=== PATIENT | male | born 1990 | race American Indian/Alaskan Native ===

== ENCOUNTER 2017-12-28 08:04 | Emergency (ER) | payer BC ==
[2017-12-28 08:08] VITALS: BMI 24.4
[2017-12-28] MEDS ORDERED: Alum-Mag Hydrox-Simethicone Susp (30 mL) PO STA (08:08)
[2017-12-28] MEDS ORDERED: Sodium Chloride 0.9% 1,000 ML IV STA (08:08)
[2017-12-28 08:21] LABS: BASO # 0.02 K/mm3 (0.0-2.0); BASO % 0.3 % (0.0-3.0); EOS # 0.2 (0.0-0.7); EOS % 2.7 % (1.5-5.0); GRAN # 3.57 (1.4-6.5); GRAN % 52.6 % (50.0-68.0); HEMOGLOBIN 14.4 g/dL (14.0-18.0); LYMPH # 2.3 (1.2-3.4); LYMPH % 34.1 % (22.0-35.0); MEAN CELL VOLUME 91.3 fl (80.0-105.0); MEAN CORPUSCULAR HEMOGLOBIN 31.4 pg (25.0-35.0); MEAN CORPUSCULAR HGB CONC 34.4 g/dl (31.0-37.0); MEAN PLATELET VOLUME 10.2 fl (7.0-11.0); MONO # 0.7 (0.1-0.6); MONO % 10.3 % (1.0-6.0); RBC 4.58 10^6/uL (3.5-6.1); RED CELL DISTRIBUTION WIDTH 12.4 % (11.5-14.5); WHITE BLOOD COUNT 6.8 10^3/ul (4.5-11.0)
[2017-12-28 08:25] LABS: ALB/GLOB RATIO 1.2 (1.1-1.8); ALBUMIN 4.5 g/dL (3.0-4.8); ALT/SGPT 46 U/L (7-56); AST/SGOT 44 U/L (17-59); BLOOD UREA NITROGEN 11 mg/dL (7-21); CALCIUM 9.7 mg/dL (8.4-10.5); GFR NON-AFRICAN AMERICAN > 60; LIPASE 63 U/L (23-300)
[2017-12-28 08:31] VITALS: O2SAT 98
[2017-12-28 08:44] LABS: PH,URINE 6.5 (4.7-8.0); URINE BILIRUBIN NEGATIVE (NEGATIVE); URINE BLOOD NEGATIVE (NEGATIVE); URINE GLUCOSE (UA) NEGATIVE (NEGATIVE); URINE LEUKOCYTE ESTERASE TRACE Leu/uL (NEGATIVE); URINE PROTEIN 30 mg/dL (<30 mg/dL); URINE UROBILINOGEN 0.2 E.U./dL (<1 E.U./dL)
[2017-12-28 08:49] LABS: URINE APPEARANCE CLEAR (CLEAR); URINE COLOR YELLOW (YELLOW)
[2017-12-28 08:54] LABS: URINE BACTERIA MANY (NEG); URINE EPITHELIAL CELLS 0 - 2 /hpf (0-5)
[2017-12-28 08:55] LABS: URINE AMORPHOUS SEDIMENT FEW
--- NOTE | 2017-12-28 09:14 | ED PDOC ---
Arrival/HPI - General Chief Complaint: GI Problem Time Seen by Provider: 12/28/17 08:07 Historian: Patient - History of Present Illness Narrative History of Present Illness (Text): 12/28/17 07:45 27 year old male, with no significant past medical history, who presents to the Emergency department complaining of excessive belching and constipation for the past 6 months, noting bowel movements about 1 day per week. Patient notes nausea and vomiting sometimes after eating. Patient states he went to [facility] last year, where tests completed were negative and he was not directed to follow up with any other doctors. Patient states he has not taken any medication, but instead controls his diet to help with symptoms, noting he does not notice any significant changes with any specific foods. 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 Patient is a non-smoker, denies use of drugs and denies EtOH consumption. Patient denies diarrhea, loss of weight, or any other complaints. Time/Duration: Other (ongoing for past 6 months) Symptom Onset: Sudden Symptom Course: Unchanged Activities at Onset: Light Past Medical History - Provider Review Nursing Documentation Reviewed: Yes - Cardiac Hx Cardiac Disorders: No - Pulmonary Hx Respiratory Disorders: No - Neurological Hx Neurological Disorder: No - HEENT Hx HEENT Disorder: No - Renal Hx Renal Disorder: No - Endocrine/Metabolic Hx Endocrine Disorders: No - Hematological/Oncological Hx Blood Disorders: No - Integumentary Hx Dermatological Disorder: No - Musculoskeletal/Rheumatological Hx Musculoskeletal Disorders: No - Gastrointestinal Hx Gastrointestinal Disorders: No - Genitourinary/Gynecological Hx Genitourinary Disorders: No - Psychiatric Hx Psychophysiologic Disorder: No Hx Substance Use: No Family/Social History - Physician Review Nursing Documentation Reviewed: Yes Family/Social History: No Known Family HX Smoking Status: Never Smoked Hx Alcohol Use: No Hx Substance Use: No Allergies/Home Meds Allergies/Adverse Reactions: Allergies No Known Allergies Allergy (Unverified 12/28/17 08:08) Review of Systems - Physician Review All systems were reviewed & negative as marked: Yes - Review of Systems Constitutional: Normal. absent: Weight Change (patient denies loss of weight) Eyes: Normal Respiratory: Normal Cardiovascular: Normal Gastrointestinal: Constipation (patient notes ongoing constipation for past 6 months), Nausea, Vomiting (patient notes vomiting sometimes after eating). 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 absent: Normal Physical Exam Vital Signs Reviewed: Yes Vital Signs Temp Pulse Resp BP Pulse Ox 12/28/17 08:27 98.5 F 61 18 105/67 98 12/28/17 08:05 97.5 F L 61 17 119/69 99 Temperature: Afebrile Blood Pressure: Normal Pulse: Regular Respiratory Rate: Normal Appearance: Positive for: Well-Appearing, Non-Toxic, Comfortable Pain Distress: None Mental Status: Positive for: Alert and Oriented X 3 - Systems Exam Head: Present: Atraumatic, Normocephalic Pupils: Present: PERRL Extroacular Muscles: Present: EOMI Conjunctiva: Present: Normal Mouth: Present: Moist Mucous Membranes Neck: Present: Normal Range of Motion Respiratory/Chest: Present: Clear to Auscultation, Good Air Exchange. No: Respiratory Distress, Accessory Muscle Use Cardiovascular: Present: Regular Rate and Rhythm, Normal S1, S2. No: Murmurs Abdomen: Present: Other (No abdominal fullness. Slight discomfort on palpitation of left abdomen. ). No: Tenderness, Distention, Peritoneal Signs Back: Present: Normal Inspection Upper Extremity: Present: Normal Inspection. No: Cyanosis, Edema Lower Extremity: Present: Normal Inspection. No: Edema Neurological: Present: GCS=15, CN II-XII Intact, Speech Normal Skin: Present: Warm, Dry, Normal Color. No: Rashes Psychiatric: Present: Alert, Oriented x 3, Normal Insight, Normal Concentration Medical Decision Making ED Course and Treatment: 12/28/17 07:45 Impression: 27 year old male presents to the Emergency department complaining of excessive belching and constipation for the past 6 months. Differential Diagnosis included but are not limited to: - Gastritis - PUD - Pancreatitis Plan: -- Labs -- CBC (with differential) -- X-Ray of chest -- Maalox Plus 30 ml -- Protonix Inj, 40 mg IVP -- IV fluids -- Urine culture -- Urinalysis W/Micro -- Reassess and disposition Progress Notes: 12/28/17 09:37 Labs reviewed with no leukocytosis or abnormalities on chemistries noted. UA shows leukocyte esterase as well as many bacteria present within the urine. Ro cephin ordered. X-Ray of chest reviewed by radiologist, shows: Dictator : Benita Saavedra MD Report Date : 12/28/2017 10:15:16 FINDINGS: LUNGS: The lungs are well inflated and clear. PLEURA: No significant pleural effusion identified, no pneumothorax apparent. CARDIOVASCULAR: Normal. OSSEOUS STRUCTURES: No significant abnormalities. VISUALIZED UPPER ABDOMEN: Normal. OTHER FINDINGS: None. IMPRESSION: No active pulmonary disease. - Lab Interpretations Lab Results: 12/28/17 08:10 12/28/17 08:10 Lab Results 12/28/17 08:38: Urine Color Yellow, Urine Appearance Clear, Urine pH 6.5, Ur Specific [place] 1.020, Urine Protein 30 H, Urine Glucose (UA) Negative, Urine Ketones Negative, Urine Blood Negative, Urine Nitrate Negative, Urine Bilirubin Negative, Urine Urobilinogen 0.2, Ur Leukocyte Esterase Trace H, Urine RBC 1 - 3, Urine WBC 2 - 5, Ur Epithelial Cells 0 - 2, Amorphous Sediment Few, Urine Bacteria Many, Urine Other Uyeast 12/28/17 08:10: Sodium 140, Potassium 4.0, Chloride 102, Carbon Dioxide 30, Anion Gap 12, BUN 11, Creatinine 1.0, Est GFR ( Amer) > 60, Est GFR (Non- Af Amer) > 60, Random Glucose 93, Calcium 9.7, Magnesium 1.9, Total Bilirubin 0.7, AST 44, ALT 46, Alkaline Phosphatase 88, Total Protein 8.5 H, Albumin 4.5, Globulin 3.9, Albumin/Globulin Ratio 1.2, Lipase 63 12/28/17 08:10: WBC 6.8, RBC 4.58, Hgb 14.4, Hct 41.8 L, MCV 91.3, MCH 31.4, MCHC 34.4, RDW 12.4, Plt Count 224, MPV 10.2, Gran % 52.6, Lymph % (Auto) 34.1, [place] % (Auto) 10.3 H, Eos % (Auto) 2.7, Baso % (Auto) 0.3, Gran # 3.57, Lymph # (Auto) 2.3, [place] # (Auto) 0.7 H, Eos # (Auto) 0.2, Baso # (Auto) 0.02 - RAD Interpretation Radiology Orders: 12/28/17 08:08 CHEST PORTABLE [RAD] Stat Vendor Representatives: Radiologist - Medication Orders Current Medication Orders: Discontinued Medications Al Hydrox/Mg Hydrox/Simethicone (Maalox Plus 30 Ml) 30 ml PO STAT STA Stop: 12/28/17 08:09 Last Admin: 12/28/17 08:24 Dose: 30 ml Sodium Chloride (Sodium Chloride 0.9%) 1,000 mls @ 1,000 mls/hr IV .Q1H STA Stop: 12/28/17 09:07 Last Admin: 12/28/17 08:23 Dose: 1,000 mls/hr eMAR Start Stop Document 12/28/17 08:23 [email or web address] (Rec: 12/28/17 08:24 [email or web address] [id number]) Intravenous Solution Start Date 12/28/17 Start Time 08:24 Pantoprazole Sodium (Protonix Inj) 40 mg IVP STAT STA Stop: 12/28/17 08:09 Last Admin: 12/28/17 08:24 Dose: 40 mg IVP Administration Document 12/28/17 08:24 [email or web address] (Rec: 12/28/17 08:24 [email or web address] [id number]) Charges for Administration # of IVP Administrations 1 - Scribe Statement The provider has reviewed the documentation as recorded by the Scribe Sandra Austin All medical record entries made by the Scribdafne were at my direction and personally dictated by me. I have reviewed the chart and agree that the record accurately reflects my personal performance of the history, physical exam, medical decision making, and the department course for this patient. I have also personally directed, reviewed, and agree with the discharge instructions and disposition. Disposition/Present on Arrival - Present on Arrival Any Indicators Present on Arrival: No History of DVT/PE: No History of Uncontrolled Diabetes: No Urinary Catheter: No History of Decub. Ulcer: No History Surgical Site Infection Following: None - Disposition Have Diagnosis and Disposition been Completed?: Yes Diagnosis: UTI (urinary tract infection), Constipation, Gastritis Disposition: HOME/ ROUTINE Disposition Time: 10:17 Patient Plan: Discharge Condition: IMPROVED Discharge Instructions (ExitCare): Constipation, Adult (DC), Urinary Tract I nfection, Adult (DC), Gastritis (DC) Prescriptions: Cephalexin [cephalexin] 500 mg PO BID 5 Days #10 cap Famotidine [Pepcid] 40 mg PO DAILY #10 tab Referrals: Magali Melendez MD [Medical Doctor] - Follow up with primary [facility] [place] [Outside] - Follow up with primary Malik Joseph MD [Staff Provider] - Follow up with primary Forms: [facility] (Welsh)
[2017-12-28] MEDS ORDERED: cefTRIAXone 1 gm 1 GM/100 ML BAG IVPB STA (09:47)
--- NOTE | 2017-12-28 10:17 | RAD ---
Date of service: 12/28/2017 HISTORY: excessive belching constipation COMPARISON: No prior. FINDINGS: LUNGS: The lungs are well inflated and clear. PLEURA: No significant pleural effusion identified, no pneumothorax apparent. CARDIOVASCULAR: Normal. OSSEOUS STRUCTURES: No significant abnormalities. VISUALIZED UPPER ABDOMEN: Normal. OTHER FINDINGS: None. IMPRESSION: No active pulmonary disease.
[2017-12-28 11:10] VITALS: BP 105/60; PULSE 70; RESP 19; TEMP 98.4
== END 2017-12-28 10:22 | disposition home or self-care (01) ==
LOC: ED 08:04
DX: K59.00 Constipation, unspecified (principal); N39.0 Urinary tract infection, site not specified; K29.70 Gastritis, unspecified, without bleeding
CPT/HCPCS: 71045; 80053; 81001; 83690; 83735; 85025; 87086; 96374; 99283; C9113; J0696; J7030